=== PATIENT | male | born 1995 | race Two or more races ===

== ENCOUNTER 2017-05-08 19:06 | Emergency (ER) | payer MEDICAID ==
[~2017-05-08] VITALS: Ht 165.1 cm; Wt 59.0 kg
[2017-05-08 19:33] VITALS: BP 111/67
[2017-05-08] MEDS ORDERED: IBUPROFEN 600 MG TAB PO ONE (23:15)
== END 2017-05-08 23:28 | disposition home or self-care (01) ==
LOC: ER 19:16
DX: S39.012A Strain of muscle, fascia and tendon of lower back, initial encounter (principal); R10.9 Unspecified abdominal pain; F12.10 Cannabis abuse, uncomplicated; V89.2XXA Person injured in unspecified motor-vehicle accident, traffic, initial encounter; Y93.89 Activity, other specified; Y92.89 Other specified places as the place of occurrence of the external cause; Y99.8 Other external cause status
CPT/HCPCS: 72131